=== PATIENT | male | born 1970 | race Caucasian/White ===

== ENCOUNTER 2021-08-19 13:07 | Emergency (ER) | payer BC ==
[~2021-08-19] VITALS: Ht 180.3 cm; Wt 87.7 kg
[2021-08-19] MEDS ORDERED: CEPH250T PO (14:11)
[2021-08-19] MEDS ORDERED: TETanus/Pertussis (Acell)/Diphther VAC/PF (Tdap-Adult) 0.5ml syringe IMVAC ONE (14:15)
[2021-08-19 14:33] VITALS: BP 144/98
== END 2021-08-19 15:00 | disposition home or self-care (01) ==
LOC: ER 13:08
DX: S60.552A Superficial foreign body of left hand, initial encounter (principal); X58.XXXA Exposure to other specified factors, initial encounter; Y93.89 Activity, other specified; Y92.89 Other specified places as the place of occurrence of the external cause; Y99.8 Other external cause status
CPT/HCPCS: 73120; 90471; 90715; 99284